=== PATIENT | female | born 1970 | race African-American/Black ===

== ENCOUNTER 2016-06-22 00:59 | Emergency (ER) | payer BC, OTHER ==
[~2016-06-22] VITALS: Ht 152.4 cm; Wt 91.0 kg
[~2016-06-22 00:59] MED LIST: ACTOPLUS MET1 TABLE1 PO; ALDACTONE25 MG PO; ASPIR 8181 M1 PO; BYETTA10 MCG/0.0 SC; CIPRO500 MG PO; COZAAR25 MG PO; CYMBALTA60 MG PO; Cymbalta PO; D3-5050000 UNIT PO; Duragesic TD; ELAVIL25 MG PO; GABAPENTIN800 MG PO; HUMALOG100 UNIT/2 SC; KEFLEX500 MG PO; LANTUS 3 M100 UNITS1 SC; LEVEMIR FL100 UNITS/ SC; LEVEMIR100 UNIT/2 SQ; LOSARTAN POTASS25 MG PO; LOSARTAN POTASS50 MG PO; MAGNESIUM500 MG PO; METFORMIN HCL1000 MG PO; MIRALAX255 GM PO; NEURONTIN800 MG PO; NOVOLIN N100 UNITS/ SC; NOVOLOG 10100 UNITS/; NOVOLOG PE100 UNITS/ SC; NOVOLOG100 UNIT/2 SQ; Neurontin PO; OMEPRAZOLE40 M1 PO; PERCOCET 5/31 TABLET PO; PIOGLITAZONE HC15 MG PO; PLAQUENIL200 MG PO; PRAVACHOL40 MG PO; PREDNISONE10 MG PO; PREDNISONE5 MG PO; PRILOSEC20 MG PO; Plaquenil PO; RANITIDINE HCL150 M1 PO; SIMVASTATIN20 MG PO; TOPAMAX100 MG PO; TRIAMCINOLONE A15 GM TP; ULTRAM50 MG PO; VITAMIN D31000 UNIT PO; ZANTAC75 MG PO; oxyCODONE PO; predniSONE PO
[2016-06-22] MEDS ORDERED: ZOFRAN ODT4 MG PO (01:58)
[2016-06-22 02:09] VITALS: BP 166/68
== END 2016-06-22 02:11 | disposition home or self-care (01) ==
LOC: EME 00:59
DX: G43.909 Migraine, unspecified, not intractable, without status migrainosus (principal); J45.909 Unspecified asthma, uncomplicated; I10 Essential (primary) hypertension; I25.2 Old myocardial infarction; Z87.442 Personal history of urinary calculi; K21.9 Gastro-esophageal reflux disease without esophagitis; E11.9 Type 2 diabetes mellitus without complications; Z79.4 Long term (current) use of insulin; M32.9 Systemic lupus erythematosus, unspecified; M06.9 Rheumatoid arthritis, unspecified; Z91.010 Allergy to peanuts; Z91.018 Allergy to other foods; Z91.041 Radiographic dye allergy status; Z91.013 Allergy to seafood; Z79.84 Long term (current) use of oral hypoglycemic drugs
CPT/HCPCS: 99281; 99284; J1885

== ENCOUNTER 2016-11-05 14:11 | Emergency (ER) | payer BC, OTHER ==
[~2016-11-05] VITALS: Ht 154.9 cm; Wt 94.8 kg
[~2016-11-05 14:11] MED LIST changes: +ZOFRAN ODT4 MG PO
[2016-11-05] MEDS ORDERED: KEFLEX500 MG PO (16:11)
[2016-11-05 16:19] VITALS: BP 146/86
== END 2016-11-05 16:20 | disposition home or self-care (01) ==
LOC: EME 14:11
DX: S90.415A Abrasion, left lesser toe(s), initial encounter (principal); S90.122A Contusion of left lesser toe(s) without damage to nail, initial encounter; M79.5 Residual foreign body in soft tissue; W22.09XA Striking against other stationary object, initial encounter; Y93.02 Activity, running; E11.9 Type 2 diabetes mellitus without complications; I10 Essential (primary) hypertension; E78.5 Hyperlipidemia, unspecified
CPT/HCPCS: 99281; 99283

== ENCOUNTER 2017-01-21 15:04 | Emergency (ER) | payer BC, OTHER ==
[~2017-01-21] VITALS: Ht 154.9 cm; Wt 92.2 kg
[2017-01-21 15:58] LABS: EOSINOPHIL (%) 1.3 % (0-5); EOSINOPHIL COUNT 0.1 K/uL (0-0.3); IMMATURE GRANULOCYTE (%) 0.2 % (0.0-0.7); INSTRUMENT ABS NEUTROPHIL CT 5.7 K/uL; LYMPHOCYTE COUNT 2.5 K/uL (1.0-2.8); MCH 31.8 PG (29.0-34.0); MCHC 33.7 G/DL (30.0-36.0); MCV 94.5 FL (83-99); MONOCYTE (%) 7.9 % (3-12); MONOCYTE COUNT 0.7 K/uL (0-0.8); NEUTROPHIL COUNT 5.7 K/uL (1.8-6.4); PLATELET COUNT 341 K/uL (156-360); RBC DIS.WIDTH-CV 11.5 % (11.8-14.6); RBC DIS.WIDTH-SD 39.8 % (39-53); RED BLOOD COUNT 4.02 M/uL (3.80-5.20)
[2017-01-21 16:06] LABS: PROTHROMBIN TIME 10.7 SEC (10.2-12.9)
[2017-01-21 16:07] LABS: CHLORIDE 108 mEq/L (99-109); POTASSIUM 4.1 mEq/L (3.7-5.4); SODIUM 141 mEq/L (136-147)
[2017-01-21 16:08] LABS: PTT 31.8 SEC (25-37)
[2017-01-21 16:09] LABS: GLUCOSE 170 mg/dL (70-99)
[2017-01-21 16:11] LABS: ANION GAP 16 MEQ/L (2-14)
[2017-01-21 16:13] LABS: GFR ESTIMATE (CALCULATED) 52 mL/min/
[2017-01-21 16:14] LABS: UREA NITROGEN (BUN) 24 mg/dL (9-23)
[2017-01-21 16:20] LABS: TROP-I INTERPRETATION NEGATIVE; TROPONIN-I < 0.01 ng/mL (0.0-0.30)
[2017-01-21 18:54] LABS: TROP-I INTERPRETATION NEGATIVE; TROPONIN-I < 0.01 ng/mL (0.0-0.30)
[2017-01-21] MEDS ORDERED: PREDNISONE50 MG PO (19:37)
[2017-01-21 19:46] VITALS: BP 127/65
== END 2017-01-21 19:48 | disposition home or self-care (01) ==
LOC: EME 15:04
PROVIDERS: Emergency Medicine
DX: R07.89 Other chest pain (principal); I10 Essential (primary) hypertension; E11.9 Type 2 diabetes mellitus without complications; Z79.4 Long term (current) use of insulin; J45.909 Unspecified asthma, uncomplicated; K21.9 Gastro-esophageal reflux disease without esophagitis; I25.2 Old myocardial infarction; F32.9 Major depressive disorder, single episode, unspecified; F41.9 Anxiety disorder, unspecified; M32.9 Systemic lupus erythematosus, unspecified; M79.7 Fibromyalgia; Z87.442 Personal history of urinary calculi
CPT/HCPCS: 71010; 80048; 84484; 85025; 85610; 85730; 93005; 99281; 99285; J2270; J7512

== ENCOUNTER 2017-12-25 17:13 | Emergency (ER) | payer BC, OTHER ==
[~2017-12-25] VITALS: Ht 152.4 cm; Wt 73.6 kg
[~2017-12-25 17:13] MED LIST changes: +PREDNISONE50 MG PO
[2017-12-25 17:29] VITALS: BP 125/88
== END 2017-12-25 18:12 | disposition left against medical advice (07) ==
LOC: EME 17:13
DX: M54.9 Dorsalgia, unspecified (principal); Z53.21 Procedure and treatment not carried out due to patient leaving prior to being seen by health care provider